=== PATIENT | female | born 1990 | race Caucasian/White ===

== ENCOUNTER 2023-11-14 08:50 | Observation (INO) | payer OTHER, SELFPAY ==
[2023-11-14 09:23] VITALS: BP 123/77; BMI 41.0
[2023-11-14] MEDS: LR 1000 IV (09:27)
[2023-11-14 09:31] LABS: % Basophils 0.4 % (0-2); % Eosinophils 1.3 % (0-6); % Lymphocytes 16.1 % (20.5-51.1); % Monocytes 6.4 % (1.7-9.3); % Neutrophils 74.8 % (42.2-75.2); Absolute Eosinophils 0.1 10^3/uL (0-0.7); Absolute Immature Granulocytes 0.1 10^3/uL (0-0.05); Absolute Lymphocytes 1.6 10^3/uL (1.2-3.4); Absolute Monocytes 0.6 10^3/uL (0.1-0.6); Absolute Neutrophils 7.4 10^3/uL (1.4-6.5); Hematocrit 34.7 % (37.0-47.0); Hemoglobin 12.4 g/dL (12.0-16.0); Mean Corp Hgb Conc. 35.7 g/dL (33.0-37.0); Mean Corpuscular Hgb 30.8 pg (27.0-31.0); Mean Corpuscular Volume 86.3 fL (81.0-99.0); Mean Platelet Volume 9.1 fL (7.4-10.4); Nucleated Red Blood Cells % 0 %; Platelet Count 267 10^3/uL (130-400); Red Blood Cell Count 4.02 10^6/uL (4.20-5.40); Red Cell Dist. Width 13.9 % (11.5-14.5); Urine Albumin Trace (Neg - Trace); Urine Bilirubin 1+ (Negative); Urine Character Slightly Cloudy (Clear); Urine Color Yellow; Urine Glucose Negative (Negative); Urine Ketone 3+ (Negative); Urine Leukocyte 1+ (Negative); Urine Nitrite Negative (Negative); Urine Occult Blood Negative (Negative); Urine Urobilinogen 2+ (Neg - 1+); White Blood Cell Count 9.9 10^3/uL (4.8-10.8)
[2023-11-14 09:46] LABS: Urine Bacteria Moderate (Negative); Urine Red Blood Cell 0-2 /HPF (0-2)
[2023-11-14 10:07] LABS: ALT (SGPT) 17 U/L (0-35); AST (SGOT) 22 U/L (14-36); Albumin 3.3 g/dl (3.5-5.0); Alkaline Phosphatase 196 U/L (38-126); Blood Urea Nitrogen 11 mg/dl (7-17); Calcium 8.6 mg/dl (8.4-10.2); Carbon Dioxide 25 mmol/L (22-30); Chloride 104 mmol/L (98-107); Estimated Creatinine Clearance > 125 ml/min; Glucose 85 mg/dl (70-99); Potassium 3.5 mmol/L (3.5-5.1); Sodium 133 mmol/L (135-145); Total Bilirubin 0.5 mg/dl (0.2-1.3); Total Protein 5.7 g/dl (6.3-8.2); Uric Acid 5.4 mg/dl (2.5-6.2); eGFR > 60.00
[2023-11-14 10:15] LABS: Urine Protein 9 mg/dl
[2023-11-14] MEDS: REGLAN 10 MG IV (11:15)
[2023-11-14] MEDS: BENADRYL 25 MG IV (11:18)
== END 2023-11-14 17:50 | disposition home or self-care (01) ==
LOC: LDRP 08:50
PROVIDERS: ADMITTING PHYSICIAN Obstetrics & Gynecology; FAMILY PHYSICIAN Obstetrics & Gynecology
DX: R11.2 Nausea with vomiting, unspecified (principal); R51.9 Headache, unspecified; R21 Rash and other nonspecific skin eruption; O34.219 Maternal care for unspecified type scar from previous cesarean delivery; Z3A.32 32 weeks gestation of pregnancy; Z87.442 Personal history of urinary calculi; O99.343 Other mental disorders complicating pregnancy, third trimester; F32.A Depression, unspecified; O99.344 Other mental disorders complicating childbirth; F41.9 Anxiety disorder, unspecified; O99.283 Endocrine, nutritional and metabolic diseases complicating pregnancy, third trimester; E03.9 Hypothyroidism, unspecified
CPT/HCPCS: 76700; 80053; 81003; 81015; 82570; 84156; 84550; 85025; 86850; 86870; 86900; 86901; 87086; G0378

== ENCOUNTER 2023-11-17 17:50 | Observation (INO) | payer OTHER, SELFPAY ==
[2023-11-17 17:56] VITALS: BP 113/79; BMI 41.0
[2023-11-17] MEDS: LR 1000 IV (19:29)
[2023-11-17 19:40] LABS: % Basophils 0.5 % (0-2); % Eosinophils 0.4 % (0-6); % Immature Granulocytes 0.7 % (0-0.5); % Lymphocytes 10.4 % (20.5-51.1); % Monocytes 8.5 % (1.7-9.3); % Neutrophils 79.5 % (42.2-75.2); Absolute Basophils 0.1 10^3/uL (0-0.2); Absolute Eosinophils 0.1 10^3/uL (0-0.7); Absolute Immature Granulocytes 0.1 10^3/uL (0-0.05); Absolute Lymphocytes 1.3 10^3/uL (1.2-3.4); Absolute Monocytes 1.1 10^3/uL (0.1-0.6); Absolute Neutrophils 10.1 10^3/uL (1.4-6.5); Hematocrit 41.7 % (37.0-47.0); Hemoglobin 15.1 g/dL (12.0-16.0); Mean Corp Hgb Conc. 36.2 g/dL (33.0-37.0); Mean Corpuscular Hgb 30.9 pg (27.0-31.0); Mean Corpuscular Volume 85.3 fL (81.0-99.0); Mean Platelet Volume 9.1 fL (7.4-10.4); Nucleated Red Blood Cells % 0 %; Platelet Count 331 10^3/uL (130-400); Red Blood Cell Count 4.89 10^6/uL (4.20-5.40); Red Cell Dist. Width 14.1 % (11.5-14.5); White Blood Cell Count 12.7 10^3/uL (4.8-10.8)
[2023-11-17] MEDS: REGLAN 10 MG IV (19:45)
[2023-11-17 19:59] LABS: ALT (SGPT) 21 U/L (0-35); AST (SGOT) 22 U/L (14-36); Albumin 4.3 g/dl (3.5-5.0); Alkaline Phosphatase 284 U/L (38-126); Amylase 103 U/L (30-110); Blood Urea Nitrogen 15 mg/dl (7-17); Calcium 9.5 mg/dl (8.4-10.2); Carbon Dioxide 14 mmol/L (22-30); Chloride 103 mmol/L (98-107); Estimated Creatinine Clearance 97 ml/min; Glucose 93 mg/dl (70-99); Lipase 140 U/L (23-300); Potassium 3.5 mmol/L (3.5-5.1); Sodium 135 mmol/L (135-145); Total Protein 6.9 g/dl (6.3-8.2); eGFR > 60.00
[2023-11-17 21:36] LABS: Urine Albumin 1+ (Neg - Trace); Urine Bilirubin 1+ (Negative); Urine Character Clear (Clear); Urine Color Yellow; Urine Glucose Negative (Negative); Urine Ketone 3+ (Negative); Urine Leukocyte Trace (Negative); Urine Nitrite Negative (Negative); Urine Occult Blood Negative (Negative); Urine Specific Gravity 1.025 (<1.030); Urine Urobilinogen 2+ (Neg - 1+)
[2023-11-17 21:43] LABS: Urine Granular Cast 0-2 /LPF (0)
[2023-11-17 21:44] LABS: Urine Bacteria Few (Negative); Urine Red Blood Cell None Seen /HPF (0-2); Urine White Cell Cast 0-2 /LPF
[2023-11-17 21:51] LABS: Protein/creatinine Ratio 0.3; Urine Protein 53 mg/dl
[2023-11-17] MEDS: KCL 270 MEQ IV (22:02)
[2023-11-17] MEDS: SODIUM BICARBONATE 1075 MEQ IV (22:02)
[2023-11-18] MEDS: BENADRYL 25 MG IV ×2 (02:17→07:05)
[2023-11-18 05:02] LABS: ALT (SGPT) 18 U/L (0-35); AST (SGOT) 17 U/L (14-36); Albumin 3.3 g/dl (3.5-5.0); Alkaline Phosphatase 230 U/L (38-126); Blood Urea Nitrogen 14 mg/dl (7-17); Carbon Dioxide 12 mmol/L (22-30); Chloride 105 mmol/L (98-107); Estimated Creatinine Clearance > 125 ml/min; Glucose 100 mg/dl (70-99); Potassium 3.2 mmol/L (3.5-5.1); Sodium 136 mmol/L (135-145); Total Protein 5.7 g/dl (6.3-8.2); eGFR > 60.00
[2023-11-18] MEDS: KCL 20 MEQ PO (06:24)
[2023-11-18] MEDS: SODIUM BICARBONATE 1150 MEQ IV ×3 (07:13→14:55)
[2023-11-18] MEDS: KCL 270 MEQ IV ×2 (07:13→20:14)
--- NOTE | 2023-11-18 09:11 | CON.MD ---
Consultation - Medical
-
Assessment
-33wks
-poor/no po intake x 2 weeks-N/V
-metabolic acidosis, anion gap
-weight loss
-lightheadedness
-anxiety
-hypokalemia
-ketosis
Plan
-suspect that AGMA is from starvation ketoacidosis, generation of unmeasured anions
-check lactate, betaOH butyrate
-D5W bicarb IVF
-may need to check ABG
-serial BMP
-replete K
[id number]
--- NOTE | 2023-11-18 11:58 | CON.GI ---
Addendum entered and electronically signed by Amanda Blakely MD 11/18/23 14:20:
I saw and examined the patient.
The BUILDING ADMIN's note was reviewed and I agree with the note.
Comment: This is a 33-year-old female who is 33 weeks with her second child who had symptoms of significant nausea vomiting for the first trimester all the way up until 22 weeks and then symptoms improved and then she was able to tolerate
diet but over the past 2 weeks she has been having refractory persistent symptoms of nausea vomiting and a couple days ago she had received IV hydration also for the symptoms. She presented yesterday with worsening symptoms and also a few days ago
she had diarrhea. She was admitted with dehydration and also was noted to have anion gap metabolic acidosis yesterday has been evaluated by nephrology and has been switched to D5W with bicarb. She says that today finally she is feeling much
improved has not had any further nausea vomiting and her diarrhea only lasted for about 2 to 3 days about a week ago. She denies any obvious exposure to sick contacts she does have a 3-year-old at home who feels fine she trains for cheerleading
contest about a week ago. Prilosec helped minimally with her symptoms she also has Zofran as needed.
Assessment and plan refractory nausea vomiting multifactorial likely related to and also likely had superimposed viral gastroenteritis since she also had diarrhea with worsening symptoms a few days ago. Overall much improved today will
start her on clear liquids advance as tolerated, continue IV fluids as recommended by renal for the metabolic acidosis. Have started her on Pepcid could use Prilosec as needed and Zofran as needed. will sign off and will be available as needed.
Original Note:
Consultation
-
Date/Time Consultation Requested: 11/17/23 @ 19:21
Date/Time Consultation Performed: 11/18/23 @ 11:00
Requesting Provider: Dr. Rahman
Performing Provider: HENRIETTA Page; Dr. Blakely
Reason for Consultation: 32+ wks nausea/vomiting/ loose stool x 1 wk
Medical History
Chief Complaint / HPI
Chief Complaint: dehydration, n/v/d
History of Present Illness:
The patient is a pleasant 33-year-old female who is a 33 weeks with no significant past medical history aside from anxiety, who presented to the labor and delivery unit for evaluation of dehydration with ongoing nausea, vomiting, and
diarrhea. We are being asked to evaluate for the presenting symptoms. The patient reports that she had been significantly nauseated throughout most of her with intermittent vomiting up to 22 weeks gestation. She had been doing fairly
well but over the last 2 weeks has had recurrent nausea and vomiting with poor p.o. intake, requiring inpatient evaluation for dehydration. She notes that she did have some diarrhea several days ago but this has since resolved. She does have a
3-year-old at home but denies any sick contacts or recent travel. She has been treated with Zofran and Benadryl for her nausea and vomiting which has only helped minimally up to this point. She also had been taking omeprazole at one point but
stopped as this was no longer effective. She otherwise denies any fevers, chills, chest pain, shortness of breath, melena, hematochezia, hematemesis, abdominal pain, or other concerning symptoms. She reports with her first she did not
experience hyperemesis gravidarum. On admission notable labs include sodium HCO3 14, alk phos 230, WBC 21.1, sodium 135. UA positive for ketones small amounts of bilirubin and trace leukocytes. She was started on IV fluids and antiemetics and
admitted for further evaluation and monitoring in the labor and delivery unit. She was also seen by nephrology as her sodium bicarbonate levels have been dropping, down to 12 this morning. She was started on IV fluids with dextrose and bicarb.
The patient reports she has not had any episodes of vomiting since earlier this morning.
Past Medical History
Past Medical History: Other (Anxiety)
Past Surgical History: , Gynecological (D+E), Orthopedic (Knee surgery x 2) and Tonsilectomy
Social History
Tobacco: Non-Smoker
Alcohol: None
Drug: None
Living: With Family
Family History
Family History: Other (Father with history of multiple myeloma)
Allergies / Home Medications
Allergy/AdvReac Type Severity Reaction Status Date / Time
No Known Allergies Allergy Verified 11/17/23 18:10
Medication Instructions Recorded
escitalopram oxalate 10 mg tablet 10 mg PO QPM Mental Health/Anxiety 04/01/20
aspirin 81 mg capsule 81 mg PO QPM Blood Clot 09/26/23
Prevention/Tx
prenat.vits,ирина,[id number] 1 tab PO 1XD Supplement 09/26/23
doxylamine succinate 25 mg tablet 25 mg PO HS PRN sleep 11/14/23
(Unisom (doxylamine))
Review of Systems
-
History Source: Patient
Constitutional: Reports No Symptoms
EENT: Reports No Symptoms
Respiratory: Reports No Symptoms
Cardiac: Reports No Symptoms
Abdomen/GI: Reports Nausea, Vomiting and Diarrhea
: Reports No Symptoms
Musculoskeletal: Reports No Symptoms
Skin: Reports No Symptoms
Neurological: Reports No Symptoms
Endocrine: Reports No Symptoms
Vital Signs
Temp Pulse Resp BP
98.4 F 122 18 113/79
11/17/23 17:56 11/17/23 17:56 11/17/23 17:56 11/17/23 17:56
Physical Exam
Exam
General: Well Developed, Well Nourished, No Apparent Distress and Comfortable
HEENT: Normocephalic, Anicteric and Atraumatic
Respiratory: Clear
Cardiac: S1/S2 and Regular Rhythm
Breast: Deferred by me
GI: Soft, Non Tender, Normal Bowel Sounds and Other (Gravid abdomen)
Skin: Warm and Dry
Neuro: Awake, Alert and Oriented
Psych: Calm
Results
WBC 12.7 10^3/uL (4.8-10.8) H 11/17/23 19:31
Hgb 15.1 g/dL (12.0-16.0) D 11/17/23 19:31
Hct 41.7 % (37.0-47.0) 11/17/23 19:
MCV 85.3 fL (81.0-99.0) 11/17/23 19:31
Plt Count 331 10^3/uL (130-400) D 11/17/23 19:31
Absolute Neuts (auto) 10.1 10^3/uL (1.4-6.5) H 11/17/23 19:31
Sodium 136 mmol/L (135-145) 11/18/23 04:12
Potassium 3.2 mmol/L (3.5-5.1) L 11/18/23 04:12
Chloride 105 mmol/L (98-107) 11/18/23 04:12
Carbon Dioxide 12 mmol/L (22-30) L* 11/18/23 04:12
BUN 14 mg/dl (7-17) 11/18/23 04:12
Creatinine 0.7 mg/dL (0.6-1.0) 11/18/23 04:12
Calcium 9.0 mg/dl (8.4-10.2) 11/18/23 04:12
Total Bilirubin 1.0 mg/dl (0.2-1.3) 11/18/23 04:12
AST 17 U/L (14-36) 11/18/23 04:12
ALT 18 U/L (0-35) 11/18/23 04:12
Alkaline Phosphatase 230 U/L (38-126) H 11/18/23 04:12
Amylase 103 U/L (30-110) 11/17/23 19:31
Lipase 140 U/L (23-300) 11/17/23 19:31
Prior GI Procedures:
EGD: none
Colonoscopy: none
Assessment / Plan
-
The patient is a pleasant 33-year-old female who is a 33 weeks with no significant past medical history aside from anxiety, who presented to the labor and delivery unit for evaluation of dehydration with ongoing nausea, vomiting, and
diarrhea. We are being asked to evaluate for the presenting symptoms. Significant nausea and vomiting early in lasting up to 22 weeks which had improved but now recurrent symptoms requiring IV hydration. Also with reported diarrhea
although since resolved. Noted with significant acidosis, started on sodium bicarbonate drip. Currently symptoms have improved.
Problem list:
-nausea, vomiting
-diarrhea
- state, 33 weeks gestation
-metabolic acidosis
-elevated alk phos
Recommendations:
-Etiology of current symptoms possibly multifactorial secondary to state with hyperemesis syndrome versus possible gastroenteritis versus other.
---Currently symptoms are improved with no further diarrhea or vomiting.
-At this time would manage conservatively with IV fluids and antiemetics including Zofran; other recommendations as per OB
-If no further vomiting slowly reintroduce p.o. intake starting with clear liquid diet
-Nephrology following for acidosis, started on fluids with bicarb. Management as per them
-If recurrent diarrhea would send stool studies to rule out infectious etiology
-No further recommendations at this time, please call back with questions or concerns or worsening symptoms
-
-
Thank you for consultation and allowing me to participate in the patient's care. Please call the equipment validation engineer GI physician during the after hours with any questions or concerns.
[2023-11-18 12:54] LABS: Lactic Acid 0.8 mmol/L (0.7-2.0)
[2023-11-18 13:04] LABS: Blood Urea Nitrogen 13 mg/dl (7-17); Calcium 8.8 mg/dl (8.4-10.2); Carbon Dioxide 15 mmol/L (22-30); Chloride 102 mmol/L (98-107); Estimated Creatinine Clearance > 125 ml/min; Glucose 129 mg/dl (70-99); Potassium 3.6 mmol/L (3.5-5.1); Sodium 133 mmol/L (135-145); eGFR > 60.00
[2023-11-18 13:20] LABS: B-Hydroxybutyrate 3.33 mmol/L (0.02-0.27)
[2023-11-18 18:55] LABS: Blood Urea Nitrogen 11 mg/dl (7-17); Calcium 8.4 mg/dl (8.4-10.2); Carbon Dioxide 23 mmol/L (22-30); Chloride 97 mmol/L (98-107); Estimated Creatinine Clearance > 125 ml/min; Glucose 126 mg/dl (70-99); Potassium 2.9 mmol/L (3.5-5.1); Sodium 131 mmol/L (135-145); eGFR > 60.00
[2023-11-18] MEDS: KCL 40 MEQ PO (20:33)
[2023-11-18] MEDS: D5/0.9% SODIUM CHLORIDE 1000 IV (20:34)
[2023-11-18] MEDS: PEPCID 20 MG PO (21:20)
[2023-11-19 00:54] LABS: Blood Urea Nitrogen 8 mg/dl (7-17); Calcium 8.3 mg/dl (8.4-10.2); Carbon Dioxide 25 mmol/L (22-30); Chloride 100 mmol/L (98-107); Estimated Creatinine Clearance > 125 ml/min; Glucose 107 mg/dl (70-99); Potassium 3.7 mmol/L (3.5-5.1); Sodium 134 mmol/L (135-145); eGFR > 60.00
[2023-11-19] MEDS: D5/0.9% SODIUM CHLORIDE 1000 IV (06:25)
[2023-11-19] MEDS: PEPCID 20 MG PO (08:01)
--- NOTE | 2023-11-19 09:18 | W.PN.NEPH.PH ---
Today's Communication / Plan
-
cap IVF
Assessment/Plan
-
Assessment
-33wks
-poor/no po intake x 2 weeks-N/V
-metabolic acidosis, anion gap
-weight loss
-lightheadedness
-anxiety
-hypokalemia
-ketosis
Plan
-cap IVF after current bag finishes
-follow BMP
-
-
Date of Service: November 19, 2023
CC / HPI / ROS
-
Chief Complaint:
metabolic acidosis
History of Present Illness:
acidosis resolved with IVF
K improved with repletion
Na slightly low
Review of Systems:
no CP/SOB
some po intake tolerated
Labs
-
Labs:
WBC 12.7 10^3/uL (4.8-10.8) H 11/17/23 19:31
RBC 4.89 10^6/uL (4.20-5.40) 11/17/23 19:31
Hgb 15.1 g/dL (12.0-16.0) D 11/17/23 19:31
Hct 41.7 % (37.0-47.0) 11/17/23 19:31
Plt Count 331 10^3/uL (130-400) D 11/17/23 19:31
Sodium 134 mmol/L (135-145) L 11/19/23 00:22
Potassium 3.7 mmol/L (3.5-5.1) D 11/19/23 00:22
Chloride 100 mmol/L (98-107) 11/19/23 00:22
Carbon Dioxide 25 mmol/L (22-30) 11/19/23 00:22
BUN 8 mg/dl (7-17) 11/19/23 00:22
Creatinine 0.5 mg/dL (0.6-1.0) L 11/19/23 00:22
eGFR > 60.00 11/19/23 00:22
Glucose 107 mg/dl (70-99) H 11/19/23 00:22
Calcium 8.3 mg/dl (8.4-10.2) L 11/19/23 00:22
Albumin 3.3 g/dl (3.5-5.0) L 11/18/23 04:12
Physical Exam
-
Vital Signs:
Vital Signs
Temp Pulse Resp BP
98.4 F 122 18 113/79
11/17/23 17:56 11/17/23 17:56 11/17/23 17:56 11/17/23 17:56
Cardiovascular:: Regular rate and rhythm
Respiratory:: Bilateral: CTA
Lung Excursion:: Normal
Abdomen:: Nontender and Soft
Bowel Sounds:: Normal
Extremity Edema:: None: Bilateral:
== END 2023-11-19 11:09 | disposition home or self-care (01) ==
LOC: LDRP 17:50
PROVIDERS: ADMITTING PHYSICIAN Obstetrics & Gynecology; CONSULT PHYSICIAN Internal Medicine Gastroenterology; OTHER PHYSICIAN Specialist
DX: E87.20 Acidosis, unspecified (principal); E86.0 Dehydration; R11.2 Nausea with vomiting, unspecified; O99.283 Endocrine, nutritional and metabolic diseases complicating pregnancy, third trimester; E03.9 Hypothyroidism, unspecified; Z3A.32 32 weeks gestation of pregnancy; R63.4 Abnormal weight loss; R42 Dizziness and giddiness; O99.343 Other mental disorders complicating pregnancy, third trimester; F41.9 Anxiety disorder, unspecified; E87.6 Hypokalemia; E88.89 Other specified metabolic disorders; F32.A Depression, unspecified; J45.909 Unspecified asthma, uncomplicated; O99.513 Diseases of the respiratory system complicating pregnancy, third trimester; Z87.442 Personal history of urinary calculi
CPT/HCPCS: 80048; 80053; 81003; 81015; 82010; 82150; 82570; 83605; 83690; 84156; 85025; 86850; 86870; 86900; 86901; 87045; 87046; 87324; 87427; 87449; 93005; G0378; J7030

== ENCOUNTER → 2023-11-28 06:50 | Outpatient (REF) | payer OTHER, SELFPAY | LOC: PNTC 06:50 | PROVIDERS: ATTENDING PHYSICIAN Obstetrics & Gynecology | DX: O09.529 Supervision of elderly multigravida, unspecified trimester (principal); Z87.59 Personal history of other complications of pregnancy, childbirth and the puerperium | CPT/HCPCS: 59025; 76816 ==

== ENCOUNTER → 2023-12-05 06:49 | Outpatient (REF) | payer OTHER, SELFPAY | LOC: PNTC 06:49 | PROVIDERS: ATTENDING PHYSICIAN Obstetrics & Gynecology | DX: O09.529 Supervision of elderly multigravida, unspecified trimester (principal); O14.90 Unspecified pre-eclampsia, unspecified trimester | CPT/HCPCS: 59025; 76815 ==

== ENCOUNTER → 2023-12-12 06:48 | Outpatient (REF) | payer OTHER, SELFPAY | LOC: PNTC 06:48 | PROVIDERS: ATTENDING PHYSICIAN Obstetrics & Gynecology | DX: O09.529 Supervision of elderly multigravida, unspecified trimester (principal); Z87.59 Personal history of other complications of pregnancy, childbirth and the puerperium | CPT/HCPCS: 59025; 76815 ==

== ENCOUNTER → 2023-12-19 06:49 | Outpatient (REF) | payer OTHER, SELFPAY | LOC: PNTC 06:49 | PROVIDERS: ATTENDING PHYSICIAN Obstetrics & Gynecology | DX: O09.529 Supervision of elderly multigravida, unspecified trimester (principal); Z87.59 Personal history of other complications of pregnancy, childbirth and the puerperium | CPT/HCPCS: 59025; 76815 ==

== ENCOUNTER 2023-12-26 08:34 | Observation (INO) | payer OTHER, SELFPAY ==
[2023-12-26 09:04] VITALS: BP 119/72; BMI 41.9
== END 2023-12-26 12:22 | disposition home or self-care (01) ==
LOC: PNTC-IN 08:34
PROVIDERS: ADMITTING PHYSICIAN Obstetrics & Gynecology
DX: O36.8130 Decreased fetal movements, third trimester, not applicable or unspecified (principal); Z3A.38 38 weeks gestation of pregnancy; O99.213 Obesity complicating pregnancy, third trimester; O34.219 Maternal care for unspecified type scar from previous cesarean delivery; O99.283 Endocrine, nutritional and metabolic diseases complicating pregnancy, third trimester; E03.9 Hypothyroidism, unspecified; Z87.442 Personal history of urinary calculi; O99.343 Other mental disorders complicating pregnancy, third trimester; F32.A Depression, unspecified; F41.9 Anxiety disorder, unspecified
CPT/HCPCS: 59025; 76816; 76818; G0378

== ENCOUNTER 2023-12-26 18:07 | Observation (INO) | payer OTHER, SELFPAY ==
[2023-12-26 18:23] VITALS: BP 115/75; BMI 41.9
[2023-12-26] MEDS: TYLENOL 1000 MG PO (18:57)
[2023-12-26] MEDS: LR 1000 IV (18:58)
[2023-12-26 19:06] LABS: Hematocrit 34.7 % (37.0-47.0); Mean Corp Hgb Conc. 34.6 g/dL (33.0-37.0); Mean Corpuscular Hgb 30.2 pg (27.0-31.0); Mean Corpuscular Volume 87.2 fL (81.0-99.0); Mean Platelet Volume 9.4 fL (7.4-10.4); Platelet Count 274 10^3/uL (130-400); Red Blood Cell Count 3.98 10^6/uL (4.20-5.40); Red Cell Dist. Width 14.1 % (11.5-14.5)
[2023-12-26 19:21] LABS: ALT (SGPT) 17 U/L (0-35); AST (SGOT) 22 U/L (14-36); Albumin 3.1 g/dl (3.5-5.0); Alkaline Phosphatase 274 U/L (38-126); Blood Urea Nitrogen 10 mg/dl (7-17); Carbon Dioxide 21 mmol/L (22-30); Chloride 104 mmol/L (98-107); Estimated Creatinine Clearance > 125 ml/min; Glucose 76 mg/dl (70-99); Potassium 3.9 mmol/L (3.5-5.1); Sodium 133 mmol/L (135-145); Total Bilirubin 0.4 mg/dl (0.2-1.3); Total Protein 5.6 g/dl (6.3-8.2); eGFR > 60.00
[2023-12-26] MEDS: ZOFRAN 4 MG IV (19:43)
== END 2023-12-26 20:32 | disposition home or self-care (01) ==
LOC: LDRP 18:07
PROVIDERS: ADMITTING PHYSICIAN Obstetrics & Gynecology; FAMILY PHYSICIAN Obstetrics & Gynecology
DX: R11.2 Nausea with vomiting, unspecified (principal); R51.9 Headache, unspecified; R10.11 Right upper quadrant pain; O99.343 Other mental disorders complicating pregnancy, third trimester; Z3A.38 38 weeks gestation of pregnancy; F32.A Depression, unspecified; F41.9 Anxiety disorder, unspecified; Z87.442 Personal history of urinary calculi; J45.909 Unspecified asthma, uncomplicated; O99.513 Diseases of the respiratory system complicating pregnancy, third trimester; O09.523 Supervision of elderly multigravida, third trimester; O99.213 Obesity complicating pregnancy, third trimester; O34.219 Maternal care for unspecified type scar from previous cesarean delivery
CPT/HCPCS: 80053; 85027; G0378

== ENCOUNTER → 2023-12-27 08:30 | Outpatient (REF) | payer OTHER, SELFPAY | LOC: PNTC 08:30 | PROVIDERS: ATTENDING PHYSICIAN Obstetrics & Gynecology | DX: O09.529 Supervision of elderly multigravida, unspecified trimester (principal); O99.210 Obesity complicating pregnancy, unspecified trimester; Z87.59 Personal history of other complications of pregnancy, childbirth and the puerperium; O36.8390 Maternal care for abnormalities of the fetal heart rate or rhythm, unspecified trimester, not applicable or unspecified | CPT/HCPCS: 59025; 76818 ==

== ENCOUNTER 2023-12-30 07:16 | Inpatient (IN) | payer OTHER, SELFPAY ==
[2023-12-30 07:21] VITALS: BP 110/78; BMI 41.9
[2023-12-30] MEDS: LR 1000 IV (07:30)
[2023-12-30 08:01] LABS: Hemoglobin 11.5 g/dL (12.0-16.0); Mean Corp Hgb Conc. 34.8 g/dL (33.0-37.0); Mean Corpuscular Hgb 29.9 pg (27.0-31.0); Mean Corpuscular Volume 85.9 fL (81.0-99.0); Mean Platelet Volume 9.2 fL (7.4-10.4); Platelet Count 279 10^3/uL (130-400); Red Blood Cell Count 3.84 10^6/uL (4.20-5.40); Red Cell Dist. Width 14.2 % (11.5-14.5)
[2023-12-30] MEDS: BICITRA 30 ML PO (09:45)
[2023-12-30] MEDS: ANCEF 10 IV (09:45)
[2023-12-30] MEDS: TYLENOL 1000 MG PO (09:45)
[2023-12-30] MEDS: PITOCIN 30 UNITS/NSS 500 ML IV (11:24)
[2023-12-30] MEDS: TORADOL 15 MG IV (17:38)
[2023-12-30] MEDS: LEXAPRO 10 MG PO (22:25)
[2023-12-31] MEDS: TORADOL 15 MG IV ×3 (00:34→12:25)
[2023-12-31] MEDS: TYLENOL 650 MG PO (00:45)
[2023-12-31 05:30] LABS: Hematocrit 32.3 % (37.0-47.0); Hemoglobin 11.2 g/dL (12.0-16.0); Mean Corp Hgb Conc. 34.7 g/dL (33.0-37.0); Mean Corpuscular Volume 86.6 fL (81.0-99.0); Mean Platelet Volume 9.5 fL (7.4-10.4); Platelet Count 308 10^3/uL (130-400); Red Blood Cell Count 3.73 10^6/uL (4.20-5.40); Red Cell Dist. Width 14.1 % (11.5-14.5); White Blood Cell Count 11.9 10^3/uL (4.8-10.8)
[2023-12-31] MEDS: SENOKOT-S 1 TABLET PO (12:25)
[2023-12-31] MEDS: MYLICON 80 MG PO (12:25)
[2023-12-31] MEDS: RHOGAM 300 MCG IM (18:01)
[2023-12-31] MEDS: LEXAPRO 10 MG PO (21:02)
[2023-12-31] MEDS: MOTRIN 600 MG PO (21:52)
[2024-01-01] MEDS: MOTRIN 600 MG PO (05:22)
--- NOTE | 2024-01-01 08:08 | W.DS.TRANS ---
DC Summary - Dry Wall Nailer
-
Discharge Instructions:
Discharge Diagnosis/Procedures Section
Instructions:
Stand-Alone Forms: LDRP Delivery
Changes to Home Medications: No
Discharge Medications:
DC Medications w/original date entered in [employer]
escitalopram oxalate 10 mg tablet 10 mg PO QPM Mental Health/Anxiety 04/01/20
prenat.vits,ирина,[id number] 1 tab PO 1XD Supplement 09/26/23
famotidine 20 mg tablet (Pepcid) 20 mg PO BID Gastrointestinal Issue 12/26/23
acetaminophen 325 mg tablet 650 mg PO Q4HPRN PRN mild pain #0 tabs 01/01/24
ibuprofen 600 mg tablet 600 mg PO Q6HPRN PRN cramps #45 tabs 01/01/24
sennosides 8.6 mg-docusate sodium 50 mg tablet (Stool Softener-Stimulant Laxative) 1 tab PO DAILYPRN PRN constipation #0 tabs 01/01/24
Home Medication Changes
Pending Results: No
[2024-01-01] MEDS: MYLICON 80 MG PO (08:47)
[2024-01-01] MEDS: SENOKOT-S 1 TABLET PO (08:47)
--- NOTE | 2024-01-01 13:49 | W.PN.ANS.POP ---
Anesthesia Post Operative
- Anesthesia Post Op Note
Vital Signs Stable-See Nursing Note: Yes
Airway Patent: Yes
Adequate Pain Control: Yes
Change in Mental Status: No
Current Postoperative Nausea & Vomiting: No
Anesthesia Complications: No
General Anesthetic Recall: No
Unplanned Admission: No
Post Op Hydration Adequate: Yes
- -
Pt awake and alert, to discharge to home this afternoon. No anesthesia c/o at time of post op visit.
[2024-01-03 16:36] LABS: Syphilis/T. pallidum Ab Reflex Negative (Negative)
== END 2024-01-01 15:01 | disposition home or self-care (01) | DRG 784 ==
LOC: LDRP 07:16
PROVIDERS: ADMITTING PHYSICIAN Obstetrics & Gynecology; FAMILY PHYSICIAN Obstetrics & Gynecology
PROC: 0UT70ZZ Resection of Bilateral Fallopian Tubes, Open Approach (ICD-10-PCS; 2023-12-30)
PROC: 6A550ZT Pheresis of Cord Blood Stem Cells, Single (ICD-10-PCS; 2023-12-30)
PROC: 10D00Z1 Extraction of Products of Conception, Low, Open Approach (ICD-10-PCS; 2023-12-30)
PROC: 3E0234Z Introduction of Serum, Toxoid and Vaccine into Muscle, Percutaneous Approach (ICD-10-PCS; 2023-12-31)
DX: O34.211 Maternal care for low transverse scar from previous cesarean delivery (principal); O99.354 Diseases of the nervous system complicating childbirth; Z3A.39 39 weeks gestation of pregnancy; Z37.0 Single live birth; O69.81X0 Labor and delivery complicated by cord around neck, without compression, not applicable or unspecified; O99.284 Endocrine, nutritional and metabolic diseases complicating childbirth; E03.9 Hypothyroidism, unspecified; G43.909 Migraine, unspecified, not intractable, without status migrainosus; O99.344 Other mental disorders complicating childbirth; F32.A Depression, unspecified; F41.9 Anxiety disorder, unspecified; O99.214 Obesity complicating childbirth; O99.824 Streptococcus B carrier state complicating childbirth; J45.909 Unspecified asthma, uncomplicated; O99.52 Diseases of the respiratory system complicating childbirth; Z30.2 Encounter for sterilization; Z23 Encounter for immunization; Z87.442 Personal history of urinary calculi; Z80.7 Family history of other malignant neoplasms of lymphoid, hematopoietic and related tissues; Z82.61 Family history of arthritis
CPT/HCPCS: 88302; 85027; 85461; 86780; 86850; 86900; 86901; J2790

== ENCOUNTER 2025-03-13 14:59 | Emergency (ER) | payer OTHER, SELFPAY ==
[2025-03-13 14:59] VITALS: BP 131/94
[2025-03-13 17:48] VITALS: BP 121/83
[2025-03-13 17:49] VITALS: BMI 40.9
--- NOTE | 2025-03-13 17:52 | DOWNTIME ---
There was a [employer] Downtime on 03/13/2025 from 1230 to 03/13/2025 at 1550. Downtime documentation of patient's care, including medication administrations, has been reconciled in the electronic record per guidelines. Refer to the
patient's paper chart under the miscellaneous tab to see printed paper medication records and downtime forms.
--- NOTE | 2025-03-13 17:53 | ED.GENMED ---
History of Present Illness
General
Chief Complaint: Vaginal Bleeding
Time Seen by Provider: 03/13/25 17:53
History of Present Illness
History of Present Illness:
TIME OF INITIAL ENCOUNTER: 5:55 PM
HPI: The patient presents due to heavy vaginal bleeding. She had tubal ligation last year and has had multiple C-sections in the past. Is going through a pad and a tampon in less than an hour. She feels lightheaded. She also has intense cramping.
EXAM:
GENERAL: Well appearing in no distress, elevated BMI
HEENT: Moist oral mucosa
CARDIOVASCULAR: No murmurs, normal heart rate, regular rhythm, No chest wall tenderness
PULMONARY: No respiratory distress, breath sounds are clear and equal
ABDOMEN: Soft with no peritoneal signs, no tenderness
: The patient has a relatively unremarkable bimanual examination with no significant tenderness and only scant amount of blood noted
NEUROLOGIC: Excellent strength all extremities, no coordination deficits
PSYCHIATRIC: Appropriate mental status, normal insight and judgement
EXTREMITIES: Nontender, no edema, moves all extremities equally
SKIN: No rash, no lesions
NUMBER AND COMPLEXITY OF PROBLEMS ADDRESSED AT THE ENCOUNTER
� Chronic conditions affecting care: Anemia, anxiety/depression
� Acute Exacerbation and/or Progression of Chronic Illness: This is an acute problem
� Differential Diagnosis includes: Anemia, fibroid, dysfunctional uterine bleeding, ectopic
AMOUNT AND/OR COMPLEXITY OF DATA TO BE REVIEWED AND ANALYZED
� I performed an independent evaluation of and my interpretation is:
EKG:
CT:
X-rays:
Laboratory Studies: Urinalysis shows 4+ blood with no clear sign of infection, a urine hCG negative, hemoglobin 12.7, chemistries unremarkable
Other: Ultrasound imaging unremarkable
� Review of other/old records: I reviewed records, the patient had multiple C-sections in the past and had tubal ligation in 2023
� Clinical information was obtained by an independent historian: None needed
� Prescriptions/Medications Considered but not given:
� Further testing considered but not performed:
RISK OF COMPLICATIONS AND/OR MORBIDITY OR MORTALITY OF PATIENT MANAGEMENT
� Social determinants of health affecting care: Lives at home
� Discussion with other providers: I notified Dr. Torrez of patient's evaluation and workup in the emergency department and states that she can call their office for close follow-up with Dr. Harrell
� Escalation of care including admission/observation vs risk of discharge considered: The patient states that her bleeding was so severe that she very quickly soaked through a tampon and has been using a pad. While in the ED,
the bleeding rate seems to have lessened.
ANY OTHER UPDATES:
While in ED, bleeding has significantly spontaneously improved
Past History
Past History
ED Past Medical History: Asthma, Psychiatric and Other (Kidney stones)
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 'It still moves out of place at times but not as much') and Tonsilectomy
Social History
Tobacco: Non-smoker
Alcohol: Occasional
Drug: None
Personal:
Living: with family
Employment: Employed
Phy Exam
Physical Exam
Physical Exam:
See HPI
Course
Orders/Labs/Results
Orders:
Orders
03/13/25 17:38
Test Result ONCE
03/13/25 17:42
Complete Blood Count/With Diff Urgent
Comprehensive Metabolic Panel Urgent
Urinalysis Reflex To Culture Urgent
Date Specimen was Collected: 03/13/25
Time Specimen was Collected: 17:38
Urine Microscopic Reflex Cult Urgent
Urine,Hcg qualitative screen [HCG, Urine Qualitative Screen] Urgent
Date Specimen was Collected: 03/13/25
Time Specimen was Collected: 17:38
03/13/25 17:56
US Pelvis Only (non-obstetric) Urgent
Comment:
Reason For Exam: vag bleed
03/13/25 18:20
0.9% Sodium Chloride 1000 ml [Nss] 1,000 ml IV BOLUS
Ketorolac [Toradol] 15 mg IV NOW STA
Abnormal Lab Results
03/13/25
17:42
MCH 25.9 L pg
(27.0-31.0)
MCHC 32.0 L g/dL
(33.0-37.0)
RDW 14.6 H %
(11.5-14.5)
Absolute Neuts (auto) 6.7 H 10^3/uL
(1.4-6.5)
Chloride 109 H mmol/L
(98-107)
Ur Occult Blood Reflex 4+ A
(Negative)
Urine RBC >100 A /HPF
(0-2)
Urine Bacteria (Reflex) Few A
(Negative)
03/13/25 17:42
03/13/25 17:42
Vital Signs
Initial and Last Documented VS:
Initial Vital Signs
Temp Pulse Resp BP Pulse Ox
36.9 C 95 16 131/94 100
03/13/25 14:59 03/13/25 14:59 03/13/25 14:59 03/13/25 14:59 03/13/25 14:59
Last Documented Vital Signs
Temp Pulse Resp BP Pulse Ox
36.9 C 83 18 121/83 98
03/13/25 14:59 03/13/25 17:48 03/13/25 17:48 03/13/25 17:48 03/13/25 17:48
*Critical Care Note
Total Time (30-74mins, 75-104mins- exclusive of procedures): Not Applicable
ED Attending Note
-
Portions of this chart may have been created with voice recognition software.� Occasional wrong word or��sound alike� substitutions may have occurred due to the inherent limitations of voice recognition software.
Discharge Plan
Departure
Patient Disposition: Home (Routine Discharge)
Date of Disposition: 03/13/25
Time of Disposition: 20:26
Patient with high blood pressure during this ER visit?: Yes
Discharge Problem:
Abnormal vaginal bleeding
Instructions: Bleeding between periods, BLOOD PRESSURE
Prescriptions:
No Action
escitalopram oxalate 10 MG tablet
10 mg PO QPM
famotidine [Pepcid] 20 mg Tablet
20 mg PO BID
prenat.vits,ирина,[id number] Tablet
1 tab PO 1XD
sennosides-docusate sodium [Stool Softener-Stimulant Laxat] 8.6-50 mg Tablet
1 tab PO DAILYPRN PRN (Reason: constipation) Qty: 0 0RF
ibuprofen 600 mg Tablet
600 mg PO Q6HPRN PRN (Reason: cramps) Qty: 45 0RF
acetaminophen 325 mg Tablet
650 mg PO Q4HPRN PRN (Reason: mild pain) Qty: 0 0RF
Referrals:
Shameka Esteban PA-C [Family Provider, Family Practice]
Activity Restrictions/Additional Instructions:
Call Dr. Harrell's office tomorrow for follow-up. I notified Dr. Torrez. Your hemoglobin level is normal. Ultrasound is normal. test is negative.
Interventions
Interventions:
*Risk Screen - Suicide Last Done: 03/13/25 14:59
*General Assessment Last Done: 03/13/25 14:59
*Neglect/Abuse Screening Last Done: 03/13/25 14:59
*ED- Fall Risk Assessment Last Done: 03/13/25 14:59
*ED COVID-19 Vaccine History Last Done: 03/13/25 14:59
*Nursing Disposition Last Done: 03/13/25 20:56
ED-Female Genitourinary Assessment Last Done: 03/13/25 17:57
Discharge Date and Time
Print Language: [place]
[2025-03-13 18:00] LABS: Urine Albumin Negative (Neg - Trace); Urine Bilirubin Negative (Negative); Urine Character Clear (Clear); Urine Color Yellow; Urine Glucose Negative (Negative); Urine Ketone Negative (Negative); Urine Leukocyte Negative (Negative); Urine Nitrite Negative (Negative); Urine Occult Blood 4+ (Negative); Urine Urobilinogen Negative (Neg - 1+)
[2025-03-13 18:02] LABS: HCG, Urine Qualitative Screen Negative
[2025-03-13 18:03] LABS: % Basophils 0.7 % (0-2); % Eosinophils 2.5 % (0-6); % Immature Granulocytes 0.4 % (0-0.5); % Lymphocytes 25.5 % (20.5-51.1); % Neutrophils 64.9 % (42.2-75.2); Absolute Basophils 0.1 10^3/uL (0-0.2); Absolute Eosinophils 0.3 10^3/uL (0-0.7); Absolute Lymphocytes 2.6 10^3/uL (1.2-3.4); Absolute Monocytes 0.6 10^3/uL (0.1-0.6); Absolute Neutrophils 6.7 10^3/uL (1.4-6.5); Hematocrit 39.7 % (37.0-47.0); Hemoglobin 12.7 g/dL (12.0-16.0); Mean Corpuscular Hgb 25.9 pg (27.0-31.0); Mean Platelet Volume 9.5 fL (7.4-10.4); Nucleated Red Blood Cells % 0 %; Platelet Count 373 10^3/uL (130-400); Red Cell Dist. Width 14.6 % (11.5-14.5); White Blood Cell Count 10.2 10^3/uL (4.8-10.8)
[2025-03-13 18:06] LABS: Urine Bacteria Few (Negative); Urine Red Blood Cell >100 /HPF (0-2); Urine White Cell 0-2 /HPF (0-5)
[2025-03-13 18:14] LABS: ALT (SGPT) 19 U/L (0-35); AST (SGOT) 22 U/L (14-36); Albumin 4.6 g/dl (3.5-5.0); Alkaline Phosphatase 88 U/L (38-126); Blood Urea Nitrogen 12 mg/dl (7-17); Calcium 9.7 mg/dl (8.4-10.2); Carbon Dioxide 26 mmol/L (22-30); Chloride 109 mmol/L (98-107); Estimated Creatinine Clearance 108 ml/min; Glucose 98 mg/dl (70-99); Potassium 4.7 mmol/L (3.5-5.1); Sodium 140 mmol/L (135-145); Total Bilirubin 0.4 mg/dl (0.2-1.3); Total Protein 7.2 g/dl (6.3-8.2); eGFR > 60.00
[2025-03-13] MEDS: NSS 1000 IV (18:31)
[2025-03-13] MEDS: TORADOL 15 MG IV (18:32)
[2025-03-13 20:55] VITALS: BP 106/63
== END 2025-03-13 20:57 | disposition home or self-care (01) ==
LOC: EMR 14:59
PROVIDERS: EMERGENCY PHYSICIAN Emergency Medicine; FAMILY PHYSICIAN Physician Assistant Medical
DX: N93.9 Abnormal uterine and vaginal bleeding, unspecified (principal); R42 Dizziness and giddiness; J45.909 Unspecified asthma, uncomplicated; Z98.51 Tubal ligation status
CPT/HCPCS: 96374; 96361; 99284; 76856; 80053; 81003; 81015; 81025; 85025